=== PATIENT | male | born 1985 | race Two or more races ===

== ENCOUNTER 2018-07-28 10:23 | Outpatient (CLI) | payer OTHER ==
[~2018-07-28 10:23] MED LIST: AMOX1TAB12 PO; BUCALSEP SPRAY30 ML MM
== END 2018-07-28 15:07 | disposition home or self-care (01) ==
LOC: NUCLEAR 10:23
DX: M85.89 Other specified disorders of bone density and structure, multiple sites (principal)
CPT/HCPCS: 78306; A9503

== ENCOUNTER 2018-08-28 13:42 | Outpatient (CLI) | payer OTHER | END 2018-08-28 13:52 | disposition home or self-care (01) | LOC: RAD 13:42 | DX: M47.814 Spondylosis without myelopathy or radiculopathy, thoracic region (principal); S86.891A Other injury of other muscle(s) and tendon(s) at lower leg level, right leg, initial encounter; M19.071 Primary osteoarthritis, right ankle and foot ==

== ENCOUNTER 2018-12-19 11:52 | Outpatient (CLI) | payer OTHER | END 2018-12-19 12:08 | disposition home or self-care (01) | LOC: TOM 11:52 | DX: J32.8 Other chronic sinusitis (principal) ==

== ENCOUNTER 2024-09-09 17:50 | Emergency (ER) | payer OTHER ==
[~2024-09-09] VITALS: Ht 175.3 cm; Wt 84.4 kg
[2024-09-09] MEDS ORDERED: LEVO-T88 MCG (17:55)
[2024-09-09] MEDS ORDERED: LIPITOR20 MG (17:55)
[2024-09-09] MEDS ORDERED: KETOROLAC TROMETHAMINE 60 MG VIAL IM ONE ×2 (20:45→20:47)
[2024-09-09] MEDS ORDERED: ORPHENADRINE CITRATE 30 MG/ML AMPUL IM ONE (20:45)
[2024-09-09] MEDS ORDERED: ORPHENADRINE CITRATE 30 MG/ML AMPUL ONE (20:47)
[2024-09-09] MEDS ORDERED: DICLOFENAC SODI50 MG PO (21:55)
[2024-09-09] MEDS ORDERED: NORFLEX100MG PO (21:55)
== END 2024-09-09 22:10 ==
LOC: ER 17:53
DX: M62.838 Other muscle spasm (principal); R20.0 Anesthesia of skin; M54.89 Other dorsalgia; E03.9 Hypothyroidism, unspecified

== ENCOUNTER → 2024-10-12 | Emergency (ER) | payer OTHER ==
[~2024-10-12] VITALS: Ht 177.8 cm; Wt 84.4 kg
[~2024-10-12] MED LIST changes: +DICLOFENAC SODI50 MG PO; +LEVO-T88 MCG; +LIPITOR20 MG; +NORFLEX100MG PO
== END | disposition left against medical advice (07) ==
LOC: ER 17:13
DX: Z53.21 Procedure and treatment not carried out due to patient leaving prior to being seen by health care provider (principal)